=== PATIENT | female | born 1990 | race Caucasian/White ===

== ENCOUNTER 2018-10-10 08:29 | Emergency (ER) | payer MEDICAID, SELFPAY ==
[2018-10-10 08:30] VITALS: BP 123/77; PULSE 71; RESP 15; TEMP 36.7; O2SAT 98; BMI 24.0
--- NOTE | 2018-10-10 08:56 | US_ITS ---
STUDY: FIRST TRIMESTER OBSTETRICAL ULTRASOUND REASON FOR EXAM: Female, 28 years old. Pain LMP: 09/18/18 , TECHNIQUE: Transvaginal TECHNICAL QUALITY: Adequate. PRIOR ULTRASOUND: None. FINDINGS: There is no demonstrated intrauterine gestational sac. There is no demonstrated yolk sac. The placenta is non-visualized. There is no demonstrated embryo ( pole). The estimated gestation age (EGA) by LMP is 3 weeks, 1 days. The estimated date of delivery (JALYN) by LMP is 06/25/2019. The uterus measures 7.5 x 5.4 x 4.1 cm. There is no demonstrated uterine fibroid. The cervix is closed. Endometrium measures 7 mm. The right ovary was not visualized. The left ovary measures 3.8 x 3.8 x 2.4 cm. There is a complex 2.7 x 2.1 x 2.2 cm cyst. There is a moderate amount of fluid in the cul de sac. US/Transvaginal w/Preg US IMPRESSION: No intrauterine gestational event noted. Complex 2.7 x 2.1 x 2.2 cm left adnexal mass with moderate free fluid. Ectopic cannot be completely excluded. Recommend correlation with beta-hCG studies and short-term follow-up to assure resolution Electronically Signed: David Maddox MD at 10:28 EDT , Service support ,
[2018-10-10 09:21] LABS: Bacteria 0 SEEN /hpf (None Seen); Mucous, Urine 0 SEEN /hpf (<or=2+); White Blood Cells 0 SEEN /hpf (0-5)
[2018-10-10 09:24] LABS: Absolute Lymphocyte Count 2.38 X10^3/ul (0.83-4.51); Absolute Neutrophil Count 4.5 X10^3/uL (2.0-7.7); Basophil# 0.04 X10^3/uL; Basophil% 0.5 % (0-1); Eosinophil# 0.28 X10^3/uL; Eosinophils% 3.6 % (0-5); Hemoglobin 13.3 g/dl (12.0-15.0); Lymphocyte # 2.38 X10^3/ul (4.0); Lymphocyte % 30.6 % (19-41); Mean Corp Hgb Conc 32.4 g/gl (32-36); Mean Corpuscular Hgb 29.6 pg (27.0-32.0); Mean Corpuscular Volume 91.3 fL (81-99); Mean Platelet Vol. 10.7 fl (6.2-12.0); Monocyte% 7.7 % (0-10); Neutrophil # 4.48 X10^3/uL (2.7-7.7); Neutrophil % 57.5 % (47-70); POSITIVE COUNT NO; POSITIVE DIFFERENTIAL NO; POSITIVE MORPHOLOGY NO; Platelet Count 252 K/mm3 (150-450); Red Blood Count 4.49 M/mm3 (4.2-5.4); White Blood Count 7.8 K/mm3 (4.4-11.0)
[2018-10-10 09:27] LABS: Color, Urine Red (Yellow); Glucose, Dipstick Normal (Normal); Ketone-Dipstick Negative (Negative); Leukocyte Esterase-Dipstick 25 /ul (Negative); Nitrite-Dipstick Negative (Negative); Occult Blood-Urine 250 /ul (Negative); Protein-Dipstick 100 mg/dl (Negative); Urine Bilirubin Dipstick Negative (Negative); Urine Clarity Cloudy (Clear); Urine Urobilinogen Normal (Normal)
--- NOTE | 2018-10-10 09:29 | ED.DCSUM_ITS ---
- ER Visit Summary Date of Service: 10/10/18 Chief Complaint: Vaginal bleeding History of Present Illness: The patient is a 28 F with dark blood for about a week. This is described as spotting that started 2 weeks after her normal menstrual cycle. She does not know if she is or not. She has supr apubic pain associated with this. She has no back pain. She has no urinary symptoms. She has no vaginal discharge. She has no upper abdominal pain. Physical Examination: Patient is initially standing up after which she sits down she does not appear in significant distress she is well-appearing. Her heart is regular lungs are clear abdomen is soft except for some suprapubic pain. There is no CVA tenderness to palpation. Emergency Department Course and Treatment: Found to have a adnexal mass with a quant hCG that is over 2000. More likely this is an ectopic . I discussed with her waiting without treatment potentially endangering her life. I discussed the patient with [facility] at [facility], who she sees. Patient is hemodynamically stable with a heart rate in the 70s she meets criteria for methotrexate. I will treat her in the ED and she will follow-up on day #4. If she feels lightheaded has more pain or fever or chills she is to return. Otherwise her workup here is negative and she is hemodynamically stable. Disposition: Discharge in stable condition Impression: Ectopic This note was generated with [employer] dictation software. It may contain incorrect words, spelling, and punctuation that were not noted in review of the chart prior to signing ED Disposition - Plan for ED Patient: Disposition: Home or Assisted Living Instructions: ED Preg Ectopic Methotrexate Tx Prescriptions: Hydrocodone Bitart/Apap 5-325 [[place] 5MG-325MG] 1 tab PO Q4H PRN PRN 2 Days #10 tab PRN Reason: Pain Additional Instructions: Follow-up with your HERITAGE CONSULTANT doctor for a repeat blood work on October 13Friday. If you have lightheadedness, you have fever chills or you feel weak. If you have abnormal amount of vaginal bleeding or increased pain return to the emergency department right away.
[2018-10-10 09:36] LABS: Red Blood Cells-Urine > 100 SEEN /hpf (0-5)
[2018-10-10 09:37] LABS: Squamous Epithelial Cells - UA 10-25 SEEN /hpf (5-10)
[2018-10-10 10:06] LABS: hCG Titer Quant., Serum 2325 mIU/mL (<9 non-preg)
[2018-10-10 10:58] VITALS: BP 126/87; PULSE 81; RESP 16
[2018-10-10 12:21] VITALS: BP 124/81; PULSE 71; RESP 14; TEMP 36.6; O2SAT 99
== END 2018-10-10 12:41 | disposition home or self-care (01) ==
PROVIDERS: Emergency Provider Emergency Medicine
DX: O00.90 Unspecified ectopic pregnancy without intrauterine pregnancy (principal); O99.330 Smoking (tobacco) complicating pregnancy, unspecified trimester; Z3A.00 Weeks of gestation of pregnancy not specified
CPT/HCPCS: 76817; 81001; 84702; 85025; 86900; 87491; 87591; 96372; 99282; A4216; J9250

== ENCOUNTER 2019-05-10 09:58 | Emergency (ER) | payer MEDICAID, SELFPAY ==
[2019-05-10 09:59] VITALS: BP 116/84; PULSE 81; RESP 18; TEMP 36.8; O2SAT 100; BMI 27.2
--- NOTE | 2019-05-10 10:11 | ED.DCSUM_ITS ---
- ER Visit Summary Date of Service: 05/10/19 Chief Complaint: Vaginal bleeding History of Present Illness: The patient is a 28 F who presents with vaginal bleeding. She states that she started last week with some brown spotting. She felt like she is also complaining of her uterus today. She has a vague crampy suprapubic pain. She is concerned because earlier this year in September she had an ectopic and had to have a surgery for this. She only has one tube left. She is sexually active and there is a chance that she could be . She is G5, P2 Ab3. She is never early for her periods normally. He did not take a test at home. Physical Examination: Vital signs reviewed. HEENT exam unremarkable. Heart is regular rate and rhythm without murmurs. Lungs are clear to auscultation. Abdomen is soft and nontender. Genitourinary exam reveals normal external genitalia. There is old blood in the vault. No active bleeding. She has no cervical motion tenderness. Her uterus is nontender as well. Extremities reveal no edema. Skin exam normal. Neurologic exam normal. Test Results: hCG is negative Emergency Department Course and Treatment: The patient has some mild old blood but no active bleeding. Her is negative. She was mostly concerned about an ectopic which is not found. She will call her DRAGLINE OILER for follow-up Treatment Plan: [] Disposition: Discharge Impression: Dysfunctional uterine bleeding This note was generated with [employer] software. It may contain incorrect words, spelling, and punctuation that were not noted in review of the chart prior to signing ED Disposition - Plan for ED Patient: Referrals: Care Physician,No Primary [Primary Care Provider] -
[2019-05-10 10:46] LABS: hCG Titer Quant., Serum < 1 mIU/mL (1-3)
--- NOTE | 2019-05-10 11:05 | ED.DEP ---
ED Disposition - Plan for ED Patient: Disposition: Home or Assisted Living Instructions: Dysfunctional Uterine Bleeding Referrals: Care Physician,No Primary [Primary Care Provider] -
[2019-05-10 11:22] VITALS: BP 112/78; PULSE 67; RESP 14
== END 2019-05-10 11:28 | disposition home or self-care (01) ==
PROVIDERS: Emergency Provider Emergency Medicine
DX: N93.8 Other specified abnormal uterine and vaginal bleeding (principal); Z72.0 Tobacco use
CPT/HCPCS: 84702; 99282

== ENCOUNTER 2020-02-20 19:35 | Emergency (ER) | payer MEDICAID, SELFPAY ==
[2020-02-20 19:35] VITALS: BP 124/83; PULSE 60; RESP 16; TEMP 36.9; O2SAT 99; BMI 28.5
== END 2020-02-20 20:27 | disposition left against medical advice (07) ==
LOC: ED 20:35
PROVIDERS: Emergency Provider Emergency Medicine
DX: S09.90XA Unspecified injury of head, initial encounter (principal); Z53.21 Procedure and treatment not carried out due to patient leaving prior to being seen by health care provider

== ENCOUNTER 2020-07-14 17:33 | Emergency (ER) | payer MEDICAID, SELFPAY ==
[2020-07-14 17:34] VITALS: BP 124/68; PULSE 78; RESP 16; TEMP 35.8; O2SAT 100; BMI 28.2
--- NOTE | 2020-07-14 18:06 | US_ITS ---
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 PRIOR ULTRASOUND: 10/10/2018 pelvic ultrasound FINDINGS: There is visualization of a single gestational sac in a normal intrauterine position. The mean sac diameter (MSD) measures 2.1 cm, indicating an estimated gestational age (EGA) of 6 weeks, 6 days. The gestational sac shape is within normal limits. There is a visualized yolk sac. The yolk sac measures 0.36 cm. The placenta is non-visualized. There is visualization of a live embryo. The crown-rump length (CRL) measures 1.1 cm, indicating an estimated gestational age (EGA) of 7 weeks, 1 days. There is demonstrated cardiac activity with a heart rate of 142 bpm. Small subchorionic hemorrhage. The estimated gestation age (EGA) by LMP is 7 weeks, 6 days. The estimated date of delivery (JALYN) by LMP is February 24 2021. The estimated gestation age (EGA) by US is 7 weeks, 0 days. The estimated date of delivery (JALYN) by US is 03/02/2021. The uterus measures 9.2 x 6.5 x 5.8 cm. There is no demonstrated uterine fibroid. The cervix is closed. The right ovary measures 3.9 x 3.6 x 3.2 cm. Simple ovarian cyst measures 2.2 x 2.4 x 1.7 cm. There is no visualized right adnexal mass or complex lesion. The left ovary measures 2.3 x 1.7 x 1.0 cm. There is no left ovarian cyst. There is no visualized left adnexal mass or complex lesion. There is fluid in the cul de sac. US/Transvaginal w/Preg US IMPRESSION: 7 week intrauterine . Probable corpus luteum cyst on the right. Small subchorionic hemorrhage. Electronically Signed: Ilia Wright MD at 19:29 EST , Service support ,
--- NOTE | 2020-07-14 18:09 | ED.DCSUM_ITS ---
- ER Visit Summary Date of Service: 07/14/20 Chief Complaint: Vaginal spotting and mild cramping History of Present Illness: The patient is a 29 F G6, P2 Ab2 both spontaneous miscarriage with 1 prior ectopic. Patient states her last menstrual period was May 19. She thinks is around 7 weeks . States she had an ultrasound but they were not sure what they were seeing on a visit. States about a week ago she started having mild pelvic cramping. Today had very mild spotting no large clots. Denies any dysuria. No fever. Physical Examination: Young female no acute distress vital signs stable afebrile. H EENT exam unremarkable. Lungs clear. Heart regular rhythm no murmur. Abdomen soft nontender normal bowel sounds no peritoneal signs. Extremities moves all 4. No edema. Neurologically she is awake and alert. Test Results: Prior ABO Rh was a positive. Quantitative hCG equals 64,518. Pelvic ultrasound read by the radiologist shows 6 weeks and 6 days single live IUP with a live embryo with a heart rate of 142. Estimated date of delivery is March 02, 2021 Emergency Department Course and Treatment: Patient with mild cramping and spotting. Has had prior ectopic x1 and 2 prior miscarriages. A quant will be obtained. Pelvic exam. And pelvic ultrasound. Treatment Plan: Patient doing well on repeat exam. Her pelvic exam is unremarkable. She was nontender. There is no blood or bleeding in the vaginal vault. Os was closed. Uterus was nontender. Performed with female nurse present in room. She will be discharged to home. Disposition: Discharge Impression: Vaginal spotting and cramping Threatened miscarriage Single live IUP at 6 weeks and 6 days. History of prior ectopic History of prior miscarriages This note was generated with [employer] software. It may contain incorrect words, spelling, and punctuation that were not noted in review of the chart prior to signing ED Disposition - Plan for ED Patient: Referrals: Care Physician,No Primary [Primary Care Provider] -
--- NOTE | 2020-07-14 19:52 | DCINST.ED_ITS ---
ED Disposition - Plan for ED Patient: Disposition: Home or Assisted Living Instructions: ED Possible Miscarriage ... Referrals: Care Physician,No Primary [Primary Care Provider] - As soon as possible Additional Instructions: Not offer any pain. Follow-up with your WARDROBE ASSISTANT. Your blood type is a positive. Your quant tonight was 64,518. Your ultrasound looked normal.
[2020-07-14 19:59] VITALS: BP 159/70; PULSE 78; RESP 16
== END 2020-07-14 20:00 | disposition home or self-care (01) ==
PROVIDERS: Emergency Provider Emergency Medicine
DX: O20.0 Threatened abortion (principal); Z3A.01 Less than 8 weeks gestation of pregnancy; Z87.891 Personal history of nicotine dependence
CPT/HCPCS: 76817; 84702; 99283; A4216

== ENCOUNTER 2020-07-31 10:36 | Emergency (ER) | payer MEDICAID, SELFPAY ==
[2020-07-31 10:38] VITALS: BP 120/86; PULSE 69; RESP 16; TEMP 35.8; O2SAT 100; BMI 28.0
--- NOTE | 2020-07-31 11:09 | US_ITS ---
STUDY: FIRST TRIMESTER OBSTETRICAL ULTRASOUND REASON FOR EXAM: Female, 29 years old CRAMPING, PER PT and quot;LOSS OF SYMPTOMS and quot; LMP: 05/20/2020. TECHNIQUE: Transabdominal and Transvaginal TECHNICAL QUALITY: Adequate. PRIOR ULTRASOUND: Comparison is made with prior study dated 07/14/2020. FINDINGS: There is visualization of a single gestational sac in a normal intrauterine position. The mean sac diameter (MSD) measures 4.1 cm, indicating an estimated gestational age (EGA) of 9 weeks, 5 days. The gestational sac shape is within normal limits. There is a visualized yolk sac. The yolk sac measures . There is visualization of the placenta. Posterior placenta. There is visualization of a live embryo. The crown-rump length (CRL) measures 2.67 cm, indicating an estimated gestational age (EGA) of 9 weeks, 4 days. There is demonstrated cardiac activity with a heart rate of 170 bpm. The estimated gestation age (EGA) by LMP is 10 weeks, 2 days. The estimated date of delivery (JALYN) by LMP is 02/24/2021. The estimated gestation age (EGA) by US is 9 weeks, 5 days. The estimated date of delivery (JALYN) by US is 02/28/2021. The uterus measures 11.4 cm x 9.1 cm x 7.9 cm. There is no demonstrated uterine fibroid. The cervix is closed. The right ovary measures 2.0 cm x 1.6 cm x 2.3 cm. There is no right ovarian cyst. There is no visualized right adnexal mass or complex lesion. The left ovary measures 2.5 cm x 2.1 cm x 1.5 cm. There is no left ovarian cyst. There is no visualized left adnexal mass or complex lesion. There is no fluid in the cul de sac. US/Init OB < 14Wks US IMPRESSION: Single live intrauterine gestation with a mean gestational age of 9 weeks and 5 days. Electronically Signed: Ibrahima El, at 12:26 EST , Service support ,
[2020-07-31] MEDS: 0.9% Normal Saline 1,000 ML 1000 ML IV (11:39)
[2020-07-31 11:44] LABS: Red Blood Cells-Urine 0 SEEN /hpf (0-5); White Blood Cells 0 SEEN /hpf (0-5)
[2020-07-31 11:46] LABS: Absolute Lymphocyte Count 2.09 X10^3/uL (0.83-4.51); Absolute Neutrophil Count 6.1 X10^3/uL (2.0-7.7); Basophil# 0.04 X10^3/uL; Basophil% 0.5 % (0-1); Eosinophil# 0.11 X10^3/uL; Eosinophils% 1.2 % (0-5); Hematocrit 35.4 % (37-47); Hemoglobin 11.8 g/dL (12.0-15.0); Lymphocyte # 2.09 X10^3/ul (4.0); Lymphocyte % 23.7 % (19-41); Mean Corp Hgb Conc 33.3 g/dL (32-36); Mean Corpuscular Hgb 29.1 pg (27.0-32.0); Mean Corpuscular Volume 87.2 fL (81-99); Mean Platelet Vol. 10.5 fl (6.2-12.0); Monocyte# 0.44 X10^3/uL; NRBC Flagged by Analyzer 0 % (0-5); Neutrophil # 6.08 X10^3/uL (2.7-7.7); Platelet Count 260 K/mm3 (150-450); RBC Distribution Width CV 12.3 % (11.6-14.6); RBC Distribution Width SD 39.8 fl (35.1-43.9); Red Blood Count 4.06 M/mm3 (4.2-5.4); White Blood Count 8.8 K/mm3 (4.4-11.0)
[2020-07-31 11:47] LABS: Color, Urine Yellow (Yellow); Glucose, Dipstick Normal (Normal); Ketone-Dipstick 5 mg/dl (Negative); Leukocyte Esterase-Dipstick Negative /ul (Negative); Nitrite-Dipstick Negative (Negative); Occult Blood-Urine Negative /ul (Negative); Protein-Dipstick 15 mg/dl (Negative); Specific Gravity, Urine 1.025 (1.002-1.030); Urine Bilirubin Dipstick Negative (Negative); Urine Clarity Sl. Cloudy (Clear); Urine Urobilinogen Normal (Normal)
[2020-07-31 11:56] LABS: Bacteria 1+ /hpf (None Seen); Mucous, Urine RARE /hpf (<or=2+); Squamous Epithelial Cells - UA 0-5 SEEN /hpf (5-10)
[2020-07-31 13:28] VITALS: BP 124/74; PULSE 68; RESP 15; O2SAT 98
--- NOTE | 2020-07-31 13:32 | ED.DCSUM_ITS ---
- ER Visit Summary Date of Service: 07/31/20 Chief Complaint: Shaky, weak, and low blood sugar History of Present Illness: The patient is a 29 F who presents with feeling shaky and weak over the past week. Patient states her blood sugar has been running low. Patient states that she ate something today and her blood sugar improved. Patient states she has been having some cramping in her pelvic area. Patient states she is approximately 9 weeks and 5 days . Patient states she has a history of miscarriages and is concerned with this. Patient denies any vaginal bleeding or discharge. Physical Examination: Vital signs are stable. Patient is afebrile. Patient is in no acute distress. Oral mucosa is pink and moist. Neck is supple. Trachea is midline. There is no JVD noted. Heart was regular rate and rhythm. Lungs are clear and equal bilaterally. Abdomen is soft. Bowel sounds are normal. There is mild lower abdominal tenderness. There is no rebound or guarding noted. Skin is warm dry. Cranial nerves II through XII are intact. There are no focal motor or sensory deficits noted. Extremities are intact. There is no calf tenderness or edema. Test Results: CBC was essentially within normal limits. Urinalysis does not show any evidence of urinary tract infection. Quantitative hCG was 95,169. Pelvic ultrasound was obtained. There is a single live intrauterine at 9 weeks 5 days with heart rate of 170. There are no other acute abnormalities. This was interpreted by the radiologist and reviewed by myself. Emergency Department Course and Treatment: Patient was given IV fluids. Patient was feeling better on reevaluation. 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 Patient understood and was agreeable with the plan. All questions were answered. Disposition: Discharge home Impression: 1. Pelvic pain. 2. This note was generated with [employer] software. It may contain incorrect words, spelling, and punctuation that were not noted in review of the chart prior to signing ED Disposition - Plan for ED Patient: Disposition: Home or Assisted Living Diagnosis: Pelvic pain, Instructions: ED Abdominal Pain, Early Referrals: Care Physician,No Primary [Primary Care Provider] - Keep Edi appointment
== END 2020-07-31 13:39 | disposition home or self-care (01) ==
PROVIDERS: Emergency Provider Emergency Medicine
DX: O26.891 Other specified pregnancy related conditions, first trimester (principal); R10.2 Pelvic and perineal pain; E16.2 Hypoglycemia, unspecified; R53.1 Weakness; Z3A.09 9 weeks gestation of pregnancy
CPT/HCPCS: 76801; 81001; 84702; 85025; 86900; 86901; 96360; 96361; 99283; J7030

== ENCOUNTER 2020-08-15 10:28 | Emergency (ER) | payer MEDICAID, SELFPAY ==
[2020-08-15 10:29] VITALS: BP 103/58; PULSE 79; RESP 16; TEMP 36; O2SAT 99; BMI 28.0
--- NOTE | 2020-08-15 10:42 | ED.VIS.GEN ---
History of Present Illness Chief Complaint: Fall Informant: Patient Onset: Today Context: Sudden Onset Timing: Continuous Current Severity: Mild Maximum Severity: Mild Narrative: The patient is a 29-year-old female who presents to the emergency department after mechanical fall at work. The patient a check she fell twice. 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 She states the patient let go of her arms and she fell backwards. She hit the patient's wheelchair and then fell to the ground. She did not strike her head or lose consciousness. She states that she was then carrying a tray and water had spilled on the floor. She lost her balance and slipped. She felt some pain in her right hip. She is still been able to ambulate. She states that she has not had any bleeding or vaginal discharge. The patient is currently about 11 weeks . States because of the in the fall, she thought she should be evaluated. Prior similar symptoms: No Recent Illness/Hospitalization: No Past Medical History - Allergies and Home Meds Allergies/Adverse Reactions: Allergies bupropion [From Wellbutrin] Allergy (Verified 08/15/20 10:31) Chest tightness Primary Care Physician: Care Physician,No Primary [Primary Care Provider] - Prior records reviewed: Yes Past Medical History: None Surgical History: noncontributory Smoking Status: Current every day smoker Review of Systems General: Denies: Chills, Fever, Sweats Eyes: Denies: Visual changes - bilaterally, Diplopia ENT: Denies: Rhinorrhea, Sore throat Cardiovascular: Denies: Chest pain, Palpitations Respiratory: Denies: Dyspnea, Cough, Dyspnea on exertion Gastrointestinal: Denies: Abdominal pain, Nausea, Vomiting, Diarrhea, Melena, Hematochezia Genitourinary: Denies: Dysuria, Hematuria, Frequency Musculoskeletal: Denies: Back pain, Extremity Pain Skin: Denies: Rash, Wounds Neurological: Denies: Headache, Weakness, Numbness Physical Exam Vital Signs/Narrative: Vital Signs Temp Pulse Resp BP Pulse Ox 08/15/20 10:29 96.8 F L 79 16 103/58 L 99 Inital Vital Signs reviewed: Yes General: Well nourished, Well developed, No Acute Distress Head: Normocephalic, Atraumatic Eyes: Perrl, EOMI ENT: Moist mucous membranes, No rhinorrhea Neck: Supple, Nontender Cardiovascular: Regular rate, Regular rhythm, No murmurs Respiratory: No distress, CTA bilaterally, Chest nontender Abdomen: Soft, Nontender, Nondistended, Normal bowel sounds Back: Nontender, Normal Inspection Extremities: No edema, Tenderness - Patient is some mild pain with abduction of the hip. There is no laxity. There is no pain with logroll. Her gait is normal. Her pulses are normal. Skin: Normal color, No rash Neurological: Alert, Oriented x3, Cranial nerves II-XII grossly intact, Normal Strength, Normal Sensation Psychological: Normal affect, Normal Mood Diagnostic/Tx/Re-eval - Medical Decision Making The patient's injuries do seem muscular in nature. She has a normal gait. She is currently 11 weeks . I do feel that the risk of radiology is higher especially given her mechanism. I did however complete a bedside ultrasound. It showed single live intrauterine . Heart rates were 160s and reactive. The fetus itself was reactive. The patient has had no other complaints. She was reassured. At this point, she will continue Tylenol and will be allowed to return to work with restricted duties. Impression 1. Right hip contusion status post fall ED Disposition - Plan for ED Patient: Instructions: ED Mechanical Fall Referrals: Corporate,[facility] [GROUP OF PHYSICIANS] -
[2020-08-15] MEDS: Acetaminophen 500 MG Tablet 1000 MG PO (10:47)
[2020-08-15 10:52] VITALS: BP 103/58; PULSE 79; RESP 18
== END 2020-08-15 10:53 | disposition home or self-care (01) ==
LOC: ED 10:50
PROVIDERS: Emergency Provider Emergency Medicine
DX: O9A.211 Injury, poisoning and certain other consequences of external causes complicating pregnancy, first trimester (principal); S70.01XA Contusion of right hip, initial encounter; W01.0XXA Fall on same level from slipping, tripping and stumbling without subsequent striking against object, initial encounter; Y93.9 Activity, unspecified; Y92.129 Unspecified place in nursing home as the place of occurrence of the external cause; Y99.0 Civilian activity done for income or pay; O99.331 Smoking (tobacco) complicating pregnancy, first trimester; F17.200 Nicotine dependence, unspecified, uncomplicated; Z3A.11 11 weeks gestation of pregnancy
CPT/HCPCS: 99283

== ENCOUNTER 2020-09-04 16:16 | Emergency (ER) | payer MEDICAID, SELFPAY ==
[2020-09-04 16:18] VITALS: BP 120/73; PULSE 87; RESP 16; TEMP 35.8; O2SAT 98; BMI 26.8
--- NOTE | 2020-09-04 16:31 | US_ITS ---
STUDY: SECOND AND THIRD TRIMESTER OBSTETRICAL ULTRASOUND - LIMITED REASON FOR EXAM: Female, 30 years old ABD PAIN LMP: Unknown. PRIOR ULTRASOUND: 07/31/2020 TECHNIQUE: Transabdominal TECHNICAL QUALITY: Adequate. FINDINGS: There is a single intrauterine fetus. The fetus is in a breech presentation. There is demonstrated cardiac activity with a heart rate of 149 bpm. There is a normal amniotic fluid volume. The largest amniotic fluid pocket measures 3.12 cm. . The placenta is posterior in location and is not low lying. There are Grade 1 placental changes. The cervix was not measured No biometrics measured. Age by LMP: 14 weeks, 1 days. JALYN by LMP: 03/04/2021. age by prior US: 14 weeks, 4 days. JALYN by prior US: 03/04/2021. age by current US: 14 weeks, 1 days. JALYN by current US: 03/04/2021. US/OB Limited (No Biometrics) IMPRESSION: Single live intrauterine of 14 weeks, 1 day by current ultrasound with JALYN of 03/04/2021. Heart rate at 149 bpm. No suspicious sonographic findings, presentation on current study is breech. Electronically Signed: David Maddox MD at 17:49 EST , Service support ,
--- NOTE | 2020-09-04 16:41 | ED.DCSUM_ITS ---
- ER Visit Summary Date of Service: 09/04/20 Chief Complaint: Vaginal discharge History of Present Illness: The patient is a 30 F presenting with vaginal discharge. Patient is currently 14 weeks . She complains of lower abdominal cramping and back pain. She states her partner cheated on her and she is concerned about possibility of STD. 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 She denies vaginal bleeding. Denies other complaints. Physical Examination: Vitals are stable. Patient is afebrile. Alert no acute distress. HEENT exam is unremarkable. Neck is supple. Lungs are clear and equal bilaterally. Heart is regular rate and rhythm. Abdomen is soft gravid nontender Pelvic: Minimal white vaginal discharge. No cervical motion tenderness. No adnexal tenderness. No bleeding. No rash or lesions Extremities are unremarkable. Skin is warm and dry. Remainder of exam is unremarkable. Emergency Department Course and Treatment: GC chlamydia was sent and is pending. Patient was given Rocephin and Zithromax. Pelvic ultrasound shows Single live intrauterine of 14 weeks, 1 day by current ultrasound with JALYN of 03/04/2021. Heart rate at 149 bpm. No suspicious sonographic findings, presentation on current study is breech. On reevaluation, patient is resting comfortably. She is advised to follow-up with her GREEN COFFEE BLENDER. Advised return to the ED for worsening complaints. Disposition: Discharge home Impression: Vaginal discharge, This note was generated with [employer] dictation software. It may contain incorrect words, spelling, and punctuation that were not noted in review of the chart prior to signing ED Disposition - Plan for ED Patient: Instructions: What Are Sexually Transmitted Diseases (STDs)? Referrals: Care Physician,No Primary [Primary Care Provider] -
[2020-09-04] MEDS: Azithromycin 250 MG Tablet 1000 MG PO (17:01)
--- NOTE | 2020-09-04 17:59 | ED.DEP ---
ED Disposition - Plan for ED Patient: Instructions: What Are Sexually Transmitted Diseases (STDs)? Referrals: Care Physician,No Primary [Primary Care Provider] -
[2020-09-04] MEDS: Ceftriaxone 500 MG Vial 250 MG IM (18:03)
[2020-09-04 18:08] VITALS: BP 120/73; PULSE 72; RESP 16; TEMP 36.7; O2SAT 98
[2020-09-04 18:46] LABS: Chlamydia Trachomatis by PCR Negative (Negative); Neisserai gonorrhoeae by PCR Negative (Negative); Probe Check PASS; Sample Adequacy Control PASS; Specimen Processing Control PASS
== END 2020-09-04 18:50 | disposition home or self-care (01) ==
LOC: ED 16:43
PROVIDERS: Emergency Provider Emergency Medicine
DX: O26.892 Other specified pregnancy related conditions, second trimester (principal); N89.8 Other specified noninflammatory disorders of vagina; Z11.3 Encounter for screening for infections with a predominantly sexual mode of transmission; R10.30 Lower abdominal pain, unspecified; M54.9 Dorsalgia, unspecified; O32.1XX0 Maternal care for breech presentation, not applicable or unspecified; Z3A.14 14 weeks gestation of pregnancy; Z87.891 Personal history of nicotine dependence
CPT/HCPCS: 76815; 87491; 87591; 96372; 99283

== ENCOUNTER 2020-11-03 18:00 | Outpatient (CLI) | payer MEDICAID, SELFPAY ==
[2020-11-03 18:10] VITALS: PULSE 79; O2SAT 99
[2020-11-03 18:15] VITALS: PULSE 75; O2SAT 100
[2020-11-03 18:21] VITALS: BMI 28.0
[2020-11-03 18:29] VITALS: O2SAT 84
[2020-11-03 18:30] VITALS: BP 111/57; PULSE 79
--- NOTE | 2020-11-04 08:50 | OB.TRI.NOTE ---
History of Present Illness Date of Service: 11/03/20 Was patient seen by the physician?: No Reason For Visit: DECREASED MOVEMENT Date of Service: 11/03/20 Final JALYN: 03/04/21 Final JALYN Source: US <20 weeks Gestational age: 22 Weeks and 5 Days History of Present Illness: 22+ week intrauterine presents to labor and delivery with complaints of decreased movement. She is a patient of Dr. Sandip Huddleston at [facility]. Patient denies any contractions or bleeding. Allergies bupropion [From Wellbutrin] Allergy (Verified 11/03/20 18:26) Chest tightness Physical Exam Vitals: Vital Signs Pulse BP Pulse Ox 79 111/57 L 84 11/03/20 18:30 11/03/20 18:30 11/03/20 18:29 NST - FHR Rate Baby A NST Reactive:: Appropriate for gestational age Impression/Plan 22+ week intrauterine with decreased movement. movement was noted by the patient when she was placed on the monitor. heart tones are reassuring for 22 weeks gestation. No contractions noted. Patient will be discharged to home and recommended routine follow-up with her obstetric provider.
== END 2020-11-03 18:45 | disposition home or self-care (01) ==
LOC: WPOUT 18:07 → WP 18:09
PROVIDERS: Visit Provider Obstetrics & Gynecology
DX: O36.8120 Decreased fetal movements, second trimester, not applicable or unspecified (principal); Z3A.22 22 weeks gestation of pregnancy
CPT/HCPCS: 59050; 99218; G0378

== ENCOUNTER 2021-01-14 03:04 | Emergency (ER) | payer MEDICAID, SELFPAY ==
[2021-01-14 03:05] VITALS: BP 112/65; PULSE 88; RESP 18; TEMP 36.7; O2SAT 97; BMI 28.6
[2021-01-14 03:08] VITALS: BP 112/65; PULSE 88; RESP 18; TEMP 36.7; O2SAT 97
--- NOTE | 2021-01-14 03:39 | EDS_ITS ---
HPI History of Present Illness Chief Complaint: Cold Sx Narrative Narrative: 30-year-old female currently 30 weeks presenting with nasal congestion for 2 weeks. She is not had a fever. She has a mild cough. She states that times the left lower part of her abdomen hurts when she coughs. She states that she has nasal drainage and frontal and maxillary sinus pressure. She has taken Tylenol for her headache and facial pain. She states that she does not have seasonal allergies PFSH PFS Medical History Gestational diabetes Tubal ectopic Home Medications Formula Tablet 1 tab PO DAILY 09/04/20 [History Last Taken Unknown] valacyclovir 500 mg PO DAILY PRN 09/04/20 [History Last Taken Unknown] amoxicillin 500 mg PO TID 10 Days #30 cap 01/14/21 [Rx Last Taken Unknown] Allergy/AdvReac Type Severity Reaction Status Date / Time bupropion [From Wellbutrin] Allergy Chest Verified 11/03/20 18:26 tightness Social History Smoking Status: Current every day smoker tobacco type: cigarettes ROS ROS ED Constitutional Constitutional ED: Denies chills or fever(s) Eyes Eyes: Denies blurry vision or change in vision ENT ENT ED: Reports rhinorrhea and other Details: Nasal drainage ; Denies ear pain Cardiovascular Cardiovascular: Denies chest pain or palpitations Respiratory/Chest Respiratory/Chest: Reports cough; Denies dyspnea Gastrointestinal Gastrointestinal: Reports abdominal pain; Denies nausea or vomiting Genitourinary Genitourinary ED: Denies dysuria or hematuria Musculoskeletal Musculoskeletal: Denies arthralgias or myalgias Integumentary Denies abscess or rash Neurologic Neurologic: Denies headache(s) or weakness Psychiatric Psychiatric: Denies anxiety or depression EXAM Physical Exam Const Vital Signs: 01/14/21 03:05 01/14/21 03:08 Temperature 98.1 F 98.1 F Temperature Source Temporal Temporal Pulse Rate 88 88 Respiratory Rate 18 18 Respiratory Effort Normal Blood Pressure 112/65 112/65 Blood Pressure Mean 80 80 Pulse Ox 97 97 Oxygen Delivery Method Room Air Room Air Positive well nourished and well developed General Appearance ED: well developed HEENT Reports moist mucous membranes HEENT Narrative: Percussion tenderness over frontal maxillary sinuses. Nasal drainage is noted. It is not purulent. Eyes PERRL and EOMs intact bilaterally Resp normal respiratory effort and clear to auscultation bilaterally Cardio regular rate and regular rhythm GI GI Narrative: Gravid. There is a mild area of tenderness she points to in the left lower quadrant when she coughs. It does not hurt to touch it when she is not coughing. Neuro oriented x3 Sensorium / Orientation: alert Psych mental status grossly normal Skin no rashes or lesions noted and no wounds MDM MDM MDM Narrative Medical decision making narrative: Patient presents with symptoms of sinusitis. She is concerned because it is getting worse. She has a mild cough. She denies any fever chills or shortness of breath. She does have a headache and frontal and maxillary pressure. She also does have nasal drainage. I feel that this is been going on for a couple of weeks fair to start her on some amoxicillin. In regards to her abdominal pain when she coughs I counseled her that I could order an ultrasound although she have to wait until I call them in. She stated she did not want to do that right now. I do believe this is reasonable and she was given signs and symptoms which would warrant return for the pain. Patient amenable this plan discharge stable condition. Impression: 1. Acute sinusitis 2. Abdominal pain with cough Discharge Plan Triage Chief Complaint: Cold Sx ED Provider: Olivier Lai Dx/Rx/DC Orders Instructions: ED Sinusitis (Antibiotic Treatment) Prescriptions: New amoxicillin 500 mg capsule 500 mg PO TID 10 Days Qty: 30 RF: 0 No Action valacyclovir 500 MG tablet 500 mg PO DAILY PRN (Reason: COLD SORES) RF: 0 Formula Tablet 1 tab PO DAILY RF: 0 Primary Care Provider: Care Physician,No Primary Referrals: [facility] Doctor,Out of [NON-STAFF] - Disposition Disposition: Home, self care Discharge Date/Time: 01/14/21 03:59
[2021-01-14] MEDS: AMOXICILLIN 500 MG CAPSULE PO (03:58)
== END 2021-01-14 03:59 | disposition home or self-care (01) ==
LOC: ED 03:52
PROVIDERS: Emergency Provider Student in an Organized Health Care Education/Training Program
DX: O99.513 Diseases of the respiratory system complicating pregnancy, third trimester (principal); J01.90 Acute sinusitis, unspecified; O99.333 Smoking (tobacco) complicating pregnancy, third trimester; F17.210 Nicotine dependence, cigarettes, uncomplicated; R10.9 Unspecified abdominal pain; Z3A.30 30 weeks gestation of pregnancy
CPT/HCPCS: 99281; 99283